=== PATIENT | male | born 1970 | race Caucasian/White ===

== ENCOUNTER 2016-10-10 19:10 | Emergency (ER) | payer OTHER ==
--- NOTE | 2016-10-10 20:02 | ED ---
Abdominal Pain/Male - HPI Summary HPI Summary: 46M presents with sudden onset diffuse abdominal pain with lifting today. while was lifting part of tractor trailer patient felt a sudden stabbing pain in his sides of his abdomen that radiated to the middle and up. He stopped lifting the part and the pain took 15 seconds to resolve. He denies any pain currently. He has never had this pain before. He denies any mass or history of hernia. He denies any fever, n/v/d. He denies any chest pain or SOB. - History of Current Complaint Chief Complaint: EDAbdPain Stated Complaint: ABD PAIN Time Seen by Provider: 10/10/16 19:29 Pain Intensity: 2 - Allergies/Home Medications Allergies/Adverse Reactions: Allergies Allergy/AdvReac Type Severity Reaction Status Date / Time bee stings Allergy Severe Difficulty Uncoded 10/10/16 19:30 Breathing laundry detergent Allergy Intermediate Rash Uncoded 10/10/16 19:30 PMH/Surg Hx/FS Hx/Imm Hx Endocrine/Hematology History: Denies: Hx Diabetes Cardiovascular History: Denies: Hx Hypertension - Surgical History Surgery Procedure, Year, and Place: Cholecystectomy Infectious Disease History: No Infectious Disease History: Denies: Traveled Outside the [place] in Last 30 Days - Family History Known Family History: Positive: Cardiac Disease - Social History Alcohol Use: None Substance Use Type: Reports: None Smoking Status (MU): Never Smoked Tobacco Review of Systems Negative: Fever Negative: Chest Pain Negative: Shortness Of Breath Positive: Abdominal Pain - resolved. Negative: Vomiting, Diarrhea, Nausea All Other Systems Reviewed And Are Negative: Yes Physical Exam Triage Information Reviewed: Yes Vital Signs On Initial Exam: Initial Vitals Temp Pulse Resp BP Pulse Ox 97.5 F 75 18 148/84 97 10/10/16 19:12 10/10/16 19:12 10/10/16 19:12 10/10/16 19:12 10/10/16 19:12 Vital Signs Reviewed: Yes Appearance: Positive: Well-Appearing Skin: Positive: Warm, Dry Head/Face: Positive: Normal Head/Face Inspection Eyes: Positive: Normal, Conjunctiva Clear Respiratory/Lung Sounds: Positive: Clear to Auscultation, Breath Sounds Present Cardiovascular: Positive: Normal, RRR Abdomen Description: Positive: Nontender, Soft, Other: - no hernia seen, carnett sign positive Bowel Sounds: Positive: Present Diagnostics - Vital Signs Vital Signs Temp Pulse Resp BP Pulse Ox 10/10/16 19:19 98.1 F 91 16 127/79 96 10/10/16 19:12 97.5 F 75 18 148/84 97 - Laboratory Lab Statement: Any lab studies that have been ordered have been reviewed, and results considered in the medical decision making process. Abdominal Pain Fem Course/Dx - Course Course Of Treatment: 46M presents with sudden onset diffuse abdominal pain while lifting something that resolved s/p 15 seconds. no n/v/d or abdominal pain currently. states does have history of muscle spasm and sort of felt like one. no history of hernia. on exam no hernia seen. abdomen soft nontender. carnett sign positive so suspect muscle strain. told to lift carefully. patient understands and agrees with plan - Diagnoses Differential Diagnosis/HQI/PQRI: Gall Bladder Disease, Other - hernia, muscle spasms Provider Diagnoses: Abdominal wall pain Discharge - Discharge Plan Condition: Good Disposition: HOME Referrals: Maliha Alcaraz MD [Primary Care Provider] - Additional Instructions: Take ibuprofen or Tylenol for pain every 6 hour as needed Be careful when lifting Follow up with primary if no improvement Return to ED if develop any new or worsening symptoms
[2016-10-10 20:13] VITALS: BP 130/92
== END 2016-10-10 20:13 | disposition home or self-care (01) ==
LOC: ED 19:10
DX: R10.84 Generalized abdominal pain (principal)
CPT/HCPCS: 99281

== ENCOUNTER 2016-12-25 18:15 | Emergency (ER) | payer OTHER ==
[2016-12-25] MEDS ORDERED: Tetan/Diph/Pertus SYR(Tdap)* 0.5 ML SYR(BOOSTRIX) use SYR IM ONE (18:24)
[2016-12-25] MEDS ORDERED: ceFAZolin 500 MG VIAL(*) 500 MG VIAL IVPB ONE (18:43)
--- NOTE | 2016-12-25 19:02 | RAD ---
Indication: Crush injury with associated laceration RIGHT fifth finger anterior aspect Comparison: No relevant prior exams available on the [facility] for comparison. Technique: AP, lateral, and oblique views RIGHT fifth finger. Report: Severe soft tissue swelling. Soft tissue laceration volar aspect at level of proximal interphalangeal joint. Associated subcutaneous emphysema. No conspicuous foreign body evident. Negative for fracture or malalignment. 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 IMPRESSION: Laceration with subcutaneous emphysema and soft tissue swelling. No conspicuous foreign body, fracture, or malalignment.
[2016-12-25] MEDS ORDERED: Lidocaine 2% PF * 5 ML VIAL INJ ONE ×2 (19:14→19:27)
--- NOTE | 2016-12-25 20:17 | UC ---
Laceration HPI - HPI Summary HPI Summary: CRUSH INJURY TO RIGHT FIFTH FINGER, CRUSHED BETWEEN TWO FIREWOOD BLOCKS AT 1750 PM. SUBSTANTIAL LACERATION TO (PALMAR ASPECT OF) RIGHT (FIFTH) FINGER. PATIENT WORKS [employer], LAST TETANUS SHOT UNKNOWN. - History Of Current Complaint Chief Complaint: UCLaceration Stated Complaint: LAC Time Seen by Provider: 12/25/16 18:24 Hx Obtained From: Patient Laceration Location: Finger Mechanism Of Injury: Blunt Trauma Onset/Duration: Sudden Onset, Lasting Hours, Still Present Severity: Severe Aggravating Factors: Position, Movement Related History: Dominant Hand Left - Allergies/Home Medications Allergies/Adverse Reactions: Allergies Allergy/AdvReac Type Severity Reaction Status Date / Time bee stings Allergy Severe Difficulty Uncoded 12/25/16 18:21 Breathing laundry detergent Allergy Intermediate Rash Uncoded 12/25/16 18:21 PMH/Surg Hx/FS Hx/Imm Hx Previously Healthy: Yes - Surgical History Surgical History: Yes Surgery Procedure, Year, and Place: Cholecystectomy - Family History Known Family History: Positive: Cardiac Disease - Social History Alcohol Use: None Substance Use Type: None Smoking Status (MU): Never Smoked Tobacco Review of Systems Constitutional: Negative Skin: Other - LACERATION RIGHT FIFTH FINGER Eyes: Negative ENT: Negative Respiratory: Negative Cardiovascular: Negative Gastrointestinal: Negative Genitourinary: Negative Motor: Negative Neurovascular: Negative Musculoskeletal: Arthralgia, Myalgia Neurological: Negative Psychological: Negative All Other Systems Reviewed And Are Negative: Yes Physical Exam Triage Information Reviewed: Yes Appearance: Well-Appearing, No Pain Distress, Well-Nourished Vital Signs: Initial Vital Signs Temp 96.7 F 12/25/16 18:17 Pulse 74 12/25/16 18:17 Resp 16 12/25/16 18:17 BP 118/84 12/25/16 18:17 Pulse Ox 98 12/25/16 18:17 Vital Signs Reviewed: Yes Eye Exam: Normal ENT Exam: Normal ENT: Positive: Normal ENT inspection, TMs normal Dental Exam: Normal Neck exam: Normal Neck: Positive: Supple, Nontender Respiratory Exam: Normal Respiratory: Positive: Chest non-tender, Lungs clear, Normal breath sounds, No respiratory distress Cardiovascular Exam: Normal Cardiovascular: Positive: RRR, No Murmur Abdominal Exam: Normal Abdomen Description: Positive: Nontender, No Organomegaly Musculoskeletal Exam: Normal Musculoskeletal: Positive: Strength Intact Neurological Exam: Normal Psychological Exam: Normal Skin: Positive: Other - IRREGULAR MACERATION 12 cm LACERATION RIGHT FIFTH FINGER Laceration Repair - Laceration Repair 1 Description: Irregular Laceration Size After Repair: Length (cm) - 12, Width (mm) - 20, Depth (mm) - 15 Modified For Repair: Yes Type Injection: Digital Anesthesia Used: 2.0% Lido Cleansing Completed Via Routine Prep: Yes Irrigation With Pressure Irrigation Device: Yes Closure Material: Sutures - 15 X 4-0 PROLENE Closure Method: Single Layer Suture Of: Skin, SQ Suture Type: Prolene Laceration Course/Dx - Differential Dx - Laceration/Wound Differental Diagnoses: Foreign Body, Fracture, Joint Infection, Laceration, Tendon Laceration Provider Diagnoses: IRRECULAR LACERATION OF RIGHT FIFTH FINGER; CRUSH INJURY TO RIGHT FIFTH FINGER Discharge - Discharge Plan Condition: Stable Disposition: HOME Prescriptions: Cephalexin CAP* [Keflex CAP*] 500 mg PO QID #40 cap Patient Education Materials: Laceration (ED), Care For Your Stitches (ED) Forms: *Work Release Referrals: Ian Davis MD [Medical Doctor] - Maliha Alcaraz MD [Primary Care Provider] - Images Hands: 1 - IRREGULAR MACERATED 12 CM LACERATION DUE TO CRUSH INJRY;
[2016-12-25 20:26] VITALS: BP 118/67
== END 2016-12-25 20:33 | disposition home or self-care (01) ==
LOC: UCEAST 18:15
DX: S67.190A Crushing injury of right index finger, initial encounter (principal); S61.210A Laceration without foreign body of right index finger without damage to nail, initial encounter; W23.0XXA Caught, crushed, jammed, or pinched between moving objects, initial encounter; Y92.9 Unspecified place or not applicable
CPT/HCPCS: 12004; 73140; 90471; 90715; 96365; 99212; G0463; J0690

== ENCOUNTER 2016-12-27 22:11 | Emergency (ER) | payer OTHER ==
[2016-12-28] MEDS ORDERED: Ibuprofen TAB* 800 MG PO ONE (00:30)
[2016-12-28 01:01] VITALS: BP 130/74
--- NOTE | 2017-01-22 14:09 | ED ---
ED Suture/Wound Check - HPI Summary HPI Summary: Pt here for recheck of wound to Rt pinky finger. Injury was crush in nature and he was seen at on 12/25/2016 for assessment. No fx, 15 sutures placed and tetanus vaccine updated. Pt has no complaints at this time - simply here for wound check as he's been working with it (NOTE: d/c advised reduced use of hand at work to prevent further injury/prevention). Has been taking anbx as directed. Denies fever, chills, N/V/D, swelling, streaking, purulent drainage. - History Of Current Complaint Chief Complaint: EDLacSutureRecheck Stated Complaint: RT PINKY LAC Time Seen by Provider: 12/28/16 00:08 Hx Obtained From: Patient Pain Intensity: 0 Pain Scale Used: 0-10 Numeric - Allergies/Home Medications Allergies/Adverse Reactions: Allergies Allergy/AdvReac Type Severity Reaction Status Date / Time bee stings Allergy Severe Difficulty Uncoded 12/27/16 22:19 Breathing laundry detergent Allergy Intermediate Rash Uncoded 12/27/16 22:19 PMH/Surg Hx/FS Hx/Imm Hx Previously Healthy: Yes Endocrine/Hematology History: Denies: Hx Diabetes Cardiovascular History: Denies: Hx Hypertension - Surgical History Surgery Procedure, Year, and Place: Cholecystectomy - Immunization History Immunizations Up to Date: Yes - last tetanus 12/25/2016 Infectious Disease History: No Infectious Disease History: Denies: Traveled Outside the [place] in Last 30 Days - Family History Known Family History: Positive: Cardiac Disease - Social History Occupation: Employed Full-time Lives: With Family Alcohol Use: None Substance Use Type: Reports: None Smoking Status (MU): Never Smoked Tobacco Review of Systems Constitutional: Negative Musculoskeletal: Negative Skin: Other - se hPI Neurological: Negative Negative: Weakness, Paresthesia, Numbness Psychological: Normal All Other Systems Reviewed And Are Negative: Yes Physical Exam Triage Information Reviewed: Yes Vital Signs On Initial Exam: Initial Vitals Temp Pulse Resp BP Pulse Ox 97.8 F 78 16 132/87 97 12/27/16 22:15 12/27/16 22:15 12/27/16 22:15 12/27/16 22:15 12/27/16 22:15 Vital Signs Reviewed: Yes Appearance: Positive: No Pain Distress, Well-Nourished - unkempt, poor hygiene, pleasant, calm, concerned Skin: Positive: Warm - wound dressing is soiled with dirt - wound itself inspected - sutures still intact however skin is dirty and appears macerated at edges in places - no purulent drainage, edema Respiratory/Lung Sounds: Positive: Breath Sounds Present Cardiovascular: Positive: Pulses are Symmetrical in both Upper and Lower Extremities Musculoskeletal: Positive: Strength/ROM Intact Neurological: Positive: Sensory/Motor Intact Psychiatric: Positive: Other - pleasant, in good spirits, perseverates about concern - apologetic for conerns Procedures - Procedure Summary Procedure Summary: Wound and surrounding skin cleaned - triple anbx ointment applied and redressed w/ clean dressing. Pt tolerated well. Diagnostics - Vital Signs Vital Signs Temp Pulse Resp BP Pulse Ox 12/28/16 01:52 98.1 F 70 16 130/74 12/28/16 00:59 98.1 F 70 16 130/74 98 12/27/16 23:55 97.3 F 72 16 132/91 97 12/27/16 22:15 97.8 F 78 16 132/87 97 - Laboratory Lab Statement: Any lab studies that have been ordered have been reviewed, and results considered in the medical decision making process. Course/Dx - Course Course Of Treatment: Pt here for wound check. WOund appears to be intact however was dirty and w/ maceration at edges. Advised rest and daily washing w/ dressing changes. COmplete anbx and f/u w/ Dr. Davis for ongoing wound care and suture removal when appropriate d/t location and current healing path of wound (less than desirable but does not appear to need more aggressive intervention at this time). Pt agrees w/ plan. - Clinical Impression Provider Diagnoses: Encounter for re-check of laceration wound Discharge - Discharge Plan Condition: Stable Disposition: HOME Referrals: Ian Davis MD [Medical Doctor] - Additional Instructions: You received education 2 days ago about wound care - will not reprint instructions as you showed them to me today. Wash wound daily with soap and water - rinse well and pat dry then apply triple antibiotic ointment and clean gauze dressing with ADITYA wrap. Reapply splint to prevent bending finger, popping sutures. Rest, ice, elevate - you may take ibuprofen 600mg every 6 hours as needed for pain, swelling Complete antibiotics as directed Follow-up with Dr. Davis next week - call to schedule appointment *If you develop fever, chills, streaking, purulent drainage, return to ED
== END 2016-12-28 01:53 | disposition home or self-care (01) ==
LOC: ED 22:11
DX: S61.216D Laceration without foreign body of right little finger without damage to nail, subsequent encounter (principal); W23.0XXD Caught, crushed, jammed, or pinched between moving objects, subsequent encounter; Y92.9 Unspecified place or not applicable; Z91.030 Bee allergy status; Z90.49 Acquired absence of other specified parts of digestive tract
CPT/HCPCS: 99281; A9270-GY